=== PATIENT | male | born 1965 | race Caucasian/White ===

== ENCOUNTER 2017-05-17 13:13 | Emergency (ER) | payer MEDICAID ==
[~2017-05-17] VITALS: Ht 170.2 cm; Wt 63.8 kg
[~2017-05-17 13:13] MED LIST: AMIT100T PO; ATOR20TA9 PO; ATOR40TA78 PO; BUPR100T6 PO; BUPR300T49 PO; CYCL5TAB PO; DIAZ10TA PO; FOLI-17 PO; GABA600T2 PO; IBUP-1222 PO; LEVO500T47 PO; MAGN400T26 PO; MELO7.5T31 PO; OXYC-307 PO; SERT100T5 PO; SERT25TA PO; THIA100T6 PO; TRAM-47 PO; TRAM50TA2 PO
[2017-05-17] MEDS ORDERED: THIAMINE 100MG TABLET PO ONE (13:30)
[2017-05-17] MEDS ORDERED: SODIUM CHLORIDE FLUSH 10ML SYR IVF ONE (13:30)
[2017-05-17] MEDS ORDERED: SODIUM CHLORIDE 0.9% 1,000ML IVBOLUS ONE ×2 (13:30→14:30)
[2017-05-17] MEDS ORDERED: LORazepam 2 MG/ML, 1ML IVPush PRN (13:30)
[2017-05-17] MEDS ORDERED: LORazepam 2 MG/ML, 1ML ONE (13:31)
[2017-05-17] MEDS ORDERED: THIAMINE 100MG TABLET ONE (13:32)
[2017-05-17 13:55] LABS: BASOPHILS # (AUTO) 0.05 x10^3/uL (0-0.1); BASOPHILS % (AUTO) 1 % (0-1); EOSINOPHILS # (AUTO) 0.02 x10^3/uL (0-0.4); EOSINOPHILS % (AUTO) 0 % (1-7); LYMPHOCYTES # (AUTO) 1.04 x10^3/uL (1-3.4); LYMPHOCYTES % (AUTO) 11 % (22-44); MD NO; MEAN CORPUSCULAR HGB CONC 34.3 g/dL (33.2-36.2); MEAN CORPUSCULAR VOLUME 93.3 fL (81-97); MEAN PLATELET VOLUME 7.5 fL (7.4-10.4); MONOCYTES # (AUTO) 0.41 x10^3/uL (0.2-0.8); MONOCYTES % (AUTO) 4 % (2-9); NEUTROPHILS # (AUTO) 7.97 x10^3/uL (1.8-6.8); NEUTROPHILS % (AUTO) 84 % (42-75); PLATELET COUNT 421 x10^3/uL (130-400); RED BLOOD COUNT 4.69 x10^6/uL (4.38-5.82); RED CELL DISTRIBUTION WIDTH 15.4 % (9.4-14.8)
[2017-05-17 14:05] LABS: ALBUMIN 3.8 g/dL (3.4-5.0); ANION GAP 12 mmol/L (5-15); CALCIUM 8.6 mg/dL (8.5-10.1); CHLORIDE 109 mmol/L (98-107)
[2017-05-17 14:10] LABS: ALANINE AMINOTRANSFERASE 28 U/L (12-78); ALKALINE PHOSPHATASE 59 U/L (45-117); BILIRUBIN,TOTAL 0.4 mg/dL (0.2-1.0); CREATININE 0.85 mg/dL (0.7-1.3); TOTAL PROTEIN 6.6 g/dL (6.4-8.2)
[2017-05-17] MEDS ORDERED: POTASSIUM CHLORIDE 10% 40 MEQ/30 ML UDC PO ONE (14:30)
[2017-05-17] MEDS ORDERED: SERT100T PO (14:39)
[2017-05-17] MEDS ORDERED: GABA600T2 PO (14:39)
[2017-05-17] MEDS ORDERED: NAPR-685 PO (14:39)
[2017-05-17] MEDS ORDERED: POTASSIUM CHLORIDE 20 MEQ TAB.ER.PRT ONE (15:38)
[2017-05-17 16:15] VITALS: BP 140/88
== END 2017-05-17 16:32 | disposition home or self-care (01) ==
LOC: ED 15:55
DX: F10.10 Alcohol abuse, uncomplicated (principal); J44.9 Chronic obstructive pulmonary disease, unspecified; M54.2 Cervicalgia; G89.29 Other chronic pain; E78.5 Hyperlipidemia, unspecified; F32.9 Major depressive disorder, single episode, unspecified; F41.9 Anxiety disorder, unspecified; Z79.899 Other long term (current) drug therapy
CPT/HCPCS: 36415; 80053; 80307; 83605; 85025; 93005; 96361; 96374; 99285; J2060; J7030

== ENCOUNTER 2017-06-06 08:35 | Emergency (ER) | payer MEDICAID ==
[~2017-06-06] VITALS: Ht 170.2 cm; Wt 65.0 kg
[~2017-06-06 08:35] MED LIST changes: +NAPR-685 PO; +SERT100T PO
[2017-06-06] MEDS ORDERED: CYCL5TAB PO (08:48)
[2017-06-06] MEDS ORDERED: LORazepam 1MG TABLET ONE (08:54)
[2017-06-06] MEDS ORDERED: LORazepam 1MG TABLET PO ONE (09:00)
[2017-06-06] MEDS ORDERED: DIAZEPAM 5 MG TABLET PO ONE (10:00)
[2017-06-06] MEDS ORDERED: KETOROLAC 30 MG/1 ML IM ONE (10:00)
[2017-06-06] MEDS ORDERED: DIAZEPAM 5 MG TABLET ONE (10:02)
[2017-06-06] MEDS ORDERED: KETOROLAC 30 MG/1 ML ONE (10:02)
[2017-06-06 10:46] VITALS: BP 108/61
== END 2017-06-06 11:34 | disposition home or self-care (01) ==
LOC: ED 10:27
DX: F41.1 Generalized anxiety disorder (principal); Z59.0 Homelessness; Z72.9 Problem related to lifestyle, unspecified; J44.9 Chronic obstructive pulmonary disease, unspecified; G89.29 Other chronic pain; M54.5 Low back pain
CPT/HCPCS: 96372; 99283; J1885

== ENCOUNTER 2017-06-07 13:48 | Emergency (ER) | payer MEDICAID ==
[~2017-06-07] VITALS: Ht 172.7 cm; Wt 65.0 kg
[2017-06-07] MEDS ORDERED: LIDOCAINE-MPF 1%, 5ML INFIL ONE (14:30)
[2017-06-07] MEDS ORDERED: LIDOCAINE-MPF 1%, 5ML ONE (14:34)
[2017-06-07 15:32] VITALS: BP 105/67
== END 2017-06-07 16:59 | disposition home or self-care (01) ==
LOC: ED 16:35
DX: S01.81XA Laceration without foreign body of other part of head, initial encounter (principal); J44.9 Chronic obstructive pulmonary disease, unspecified; E78.5 Hyperlipidemia, unspecified; W01.0XXA Fall on same level from slipping, tripping and stumbling without subsequent striking against object, initial encounter; Y93.01 Activity, walking, marching and hiking; Y92.89 Other specified places as the place of occurrence of the external cause; Y99.8 Other external cause status
CPT/HCPCS: 12013; 70450; 93005; 99284

== ENCOUNTER 2017-06-16 11:07 | Emergency (ER) | payer MEDICAID ==
[~2017-06-16] VITALS: Ht 170.2 cm; Wt 64.0 kg
[2017-06-16 11:11] VITALS: BP 108/71
== END 2017-06-16 11:51 | disposition home or self-care (01) ==
LOC: ED 11:40
DX: S01.81XD Laceration without foreign body of other part of head, subsequent encounter (principal); X58.XXXD Exposure to other specified factors, subsequent encounter
CPT/HCPCS: 99282

== ENCOUNTER 2018-04-30 20:51 | Inpatient (IN) | payer MEDICAID ==
[~2018-04-30] VITALS: Ht 172.7 cm; Wt 70.5 kg
[~2018-04-30 20:51] MED LIST changes: +ATOR20TA37 PO; -ATOR20TA9 PO; -GABA600T2 PO; +GABA600T7 PO; +SERT100T32 PO; -SERT100T5 PO; -THIA100T6 PO; +THIA100T67 PO
--- NOTE | 2018-04-30 21:14 | NUR ---
BIB [facility]. C/O chronic lower back pain and left sided dental pain. Patient reports drinking roughyl 5 shots/day with the last one being around 1700 today. Placed on NIBP and pulse ox. Will continue to monitor.
[2018-04-30] MEDS ORDERED: LORazepam 2 MG/ML, 1ML ONE (21:26)
[2018-04-30] MEDS ORDERED: ONDANSETRON 2MG/ML, 2ML ONE (21:26)
[2018-04-30] MEDS: LORazepam 2 MG/ML, 1ML IVPush PRN (21:28)
[2018-04-30] MEDS ORDERED: THIAMINE 100MG TABLET PO ONE (21:30)
[2018-04-30] MEDS ORDERED: SODIUM CHLORIDE FLUSH 10ML SYR IVF ONE (21:30)
[2018-04-30] MEDS ORDERED: ONDANSETRON 2MG/ML, 2ML IVPush ONE (21:30)
[2018-04-30] MEDS ORDERED: THIAMINE 100MG TABLET ONE (21:38)
--- NOTE | 2018-04-30 21:43 | NUR ---
Meds admin. VSS. No other needs.
--- NOTE | 2018-04-30 21:45 | NUR ---
CALLED [facility] FOR [facility]. PT WITH [facility]. [facility] DENIED TRANSFER OF PT.
[2018-04-30] MEDS ORDERED: HYDR10TA4 PO (21:46)
[2018-04-30 21:55] LABS: BASOPHILS # (AUTO) 0.03 x10^3/uL (0-0.1); BASOPHILS % (AUTO) 0 % (0-1); EOSINOPHILS # (AUTO) 0.18 x10^3/uL (0-0.4); EOSINOPHILS % (AUTO) 2 % (1-7); LYMPHOCYTES % (AUTO) 24 % (22-44); MD NO; MEAN CORPUSCULAR HEMOGLOBIN 31.6 pg (27.5-34.5); MEAN CORPUSCULAR HGB CONC 34.4 g/dL (33.2-36.2); MEAN CORPUSCULAR VOLUME 91.8 fL (81-97); MONOCYTES # (AUTO) 0.65 x10^3/uL (0.2-0.8); MONOCYTES % (AUTO) 7 % (2-9); NEUTROPHILS # (AUTO) 6.07 x10^3/uL (1.8-6.8); NEUTROPHILS % (AUTO) 67 % (42-75); PLATELET COUNT 388 x10^3/uL (130-400); RED BLOOD COUNT 4.22 x10^6/uL (4.38-5.82); RED CELL DISTRIBUTION WIDTH 13.2 % (9.4-14.8)
[2018-04-30 22:04] LABS: INTERNATIONAL NORMALIZED RATIO 1.01 (0.93-1.1); PROTHROMBIN TIME 10.6 Seconds (9.6-11.5)
[2018-04-30 22:05] LABS: ALANINE AMINOTRANSFERASE 28 U/L (12-78); ALBUMIN 3.5 g/dL (3.4-5.0); ANION GAP 13 mmol/L (5-15); CALCIUM 7.5 mg/dL (8.5-10.1); CHLORIDE 105 mmol/L (98-107); CREATININE 0.91 mg/dL (0.7-1.3)
[2018-04-30 22:08] LABS: ALKALINE PHOSPHATASE 58 U/L (45-117); BILIRUBIN,TOTAL 0.9 mg/dL (0.2-1.0); TOTAL PROTEIN 5.9 g/dL (6.4-8.2)
[2018-04-30] MEDS ORDERED: POTASSIUM CHLORIDE 20 MEQ TAB.ER.PRT PO ONE (22:30)
[2018-04-30] MEDS ORDERED: POTASSIUM CHLORIDE 20 MEQ TAB.ER.PRT ONE (22:45)
[2018-04-30] MEDS ORDERED: NS + 40MEQ KCL 1,000 ML IV ONE (22:45)
[2018-04-30] MEDS ORDERED: POTASSIUM CHLORIDE 40 MEQ in SODIUM CHLORIDE 0.9% 1,000 ML IV ONE (23:06)
[2018-04-30] MEDS: NS + 40MEQ KCL 1,000 ML IV SCH (23:13)
--- NOTE | 2018-04-30 23:14 | NUR ---
[facility] AT TO EVAL PT. FOR ADMISSION.
[2018-04-30] MEDS ORDERED: hydrOXyzine 10MG TABLET PO PRN (23:30)
[2018-04-30] MEDS ORDERED: TEMPLATE NON-FORMULARY MED. (Gabapentin** 800 MG) PO SCH (23:30)
[2018-04-30] MEDS ORDERED: SODIUM CHLORIDE FLUSH 10ML SYR IVF PRN (23:30)
--- NOTE | 2018-04-30 23:43 | NUR ---
PT. OUT OF ROOM ON [facility].
[2018-05-01] MEDS ORDERED: ACETAMINOPHEN 325 MG TABLET PO PRN
[2018-05-01] MEDS ORDERED: ONDANSETRON ODT 4 MG PO PRN
[2018-05-01] MEDS ORDERED: POLYETHYLENE GLYCOL 17 GM PACKET PO PRN
[2018-05-01] MEDS ORDERED: BISACODYL 10 MG SUPP PR PRN
[2018-05-01] MEDS: NS + 20MEQ KCL 1,000 ML IV SCH ×3 (00:17→19:31)
[2018-05-01] MEDS: THIAMINE 100MG TABLET PO SCH ×3 (00:18→20:37)
[2018-05-01] MEDS ORDERED: GABAPENTIN 400 MG CAPSULE ONE ×3 (00:21→17:10)
--- NOTE | 2018-05-01 00:46 | NUR ---
BREAK RN: PT MEDICATED WITH SCHEDULED NIGHT MEDS PER EMAR. PT ABLE TO AMBULATE STEADILY TO BATHROOM.
[2018-05-01] MEDS ORDERED: LORazepam 2 MG/ML, 1ML ONE ×4 (00:50→14:25)
[2018-05-01] MEDS: LORazepam 2 MG/ML, 1ML IVPush PRN ×5 (00:52→20:37)
--- NOTE | 2018-05-01 00:54 | NUR ---
BREAK RN: PT C/O TREMORS AND RESTLESSNESS. PT MEDICATED WITH ORDERED ATIVAN PER EMAR. PT REPOSITIONED IN BED. CALL LIGHT WITH IN REACH.
--- NOTE | 2018-05-01 00:55 | NUR ---
REPORT TO DEON CERON TO ASSUME PT. CARE.
--- NOTE | 2018-05-01 00:58 | NUR ---
ASSUMED CARE OF PATIENT. REPORT GIVEN FROM DEON MORENO
--- NOTE | 2018-05-01 01:21 | NUR ---
PT RESTING IN ROOM. NO ACUTE DISTRESS NOTED. UROGYNAECOLOGIST ON. NSR NOTED. WILL CONTINUE TO MONITOR.
--- NOTE | 2018-05-01 02:08 | NUR ---
PT RESTING IN ROOM. REGULAR RESP. NO ACUTE DISTRESS NOTED. HYDROELECTRIC STATION OPERATOR CHIEF ON. NSR NOTED. CALL LIGHT IN PLACE. WILL CONTINUE TO MONITOR.
[2018-05-01] MEDS ORDERED: NS + 40MEQ KCL 1,000 ML IV ONE (03:30)
--- NOTE | 2018-05-01 03:36 | NUR ---
PT GIVEN JUICE. VS STABLE. NO ACUTE DISTRESS NOTED. DRY PRIMER POWDER BLENDER ON. NSR NOTED. CALL LIGHT IN PLACE. WILL CONTINUE TO MONITOR.
[2018-05-01 06:05] LABS: ALANINE AMINOTRANSFERASE 27 U/L (12-78); ALBUMIN 3.2 g/dL (3.4-5.0); ANION GAP 5 mmol/L (5-15); CALCIUM 7.3 mg/dL (8.5-10.1); CHLORIDE 114 mmol/L (98-107); CREATININE 0.97 mg/dL (0.7-1.3)
[2018-05-01 06:07] LABS: ALKALINE PHOSPHATASE 52 U/L (45-117); BASOPHILS # (AUTO) 0.03 x10^3/uL (0-0.1); BASOPHILS % (AUTO) 0 % (0-1); BILIRUBIN,TOTAL 0.4 mg/dL (0.2-1.0); EOSINOPHILS # (AUTO) 0.18 x10^3/uL (0-0.4); EOSINOPHILS % (AUTO) 2 % (1-7); LYMPHOCYTES # (AUTO) 1.82 x10^3/uL (1-3.4); LYMPHOCYTES % (AUTO) 21 % (22-44); MD NO; MEAN CORPUSCULAR HEMOGLOBIN 31.8 pg (27.5-34.5); MEAN CORPUSCULAR HGB CONC 34.8 g/dL (33.2-36.2); MEAN CORPUSCULAR VOLUME 91.4 fL (81-97); MEAN PLATELET VOLUME 7.2 fL (7.4-10.4); MONOCYTES % (AUTO) 6 % (2-9); NEUTROPHILS # (AUTO) 6.08 x10^3/uL (1.8-6.8); NEUTROPHILS % (AUTO) 71 % (42-75); PLATELET COUNT 351 x10^3/uL (130-400); RED BLOOD COUNT 4.01 x10^6/uL (4.38-5.82); RED CELL DISTRIBUTION WIDTH 13.3 % (9.4-14.8); TOTAL PROTEIN 5.5 g/dL (6.4-8.2)
--- NOTE | 2018-05-01 06:58 | NUR ---
Recieved bedside report from DEON Gayle. All questions answered. Pt asleep on gurney. Pt has even chest rise and fall. PIV medication finished infusing per EMAR. Pt connected to all monitors and is on 2L of oxygen via nasal cannula. All safety measures in place. Call light within reach. No needs expressed at this time.
--- NOTE | 2018-05-01 07:32 | NUR ---
Called Dr. Holt regarding pt's potassium level drawn at [address] Holt, "discontinue potassium". Non-admin of NS + 40 Meq KCL per EMAR. See EMAR for more details.
[2018-05-01] MEDS ORDERED: THIAMINE 100MG TABLET ONE (09:25)
[2018-05-01] MEDS: NS + 40MEQ KCL 1,000 ML IV SCH ×3 (09:25→22:30)
[2018-05-01] MEDS ORDERED: SENNA/DOCUSATE TABLET ONE (09:26)
[2018-05-01] MEDS: SENNA/DOCUSATE TABLET PO SCH (09:35)
[2018-05-01] MEDS: GABAPENTIN 400 MG CAPSULE PO SCH ×3 (09:36→20:36)
[2018-05-01] MEDS ORDERED: IBUPROFEN 200 MG TABLET ONE (09:41)
[2018-05-01] MEDS: IBUPROFEN 200 MG TABLET PO PRN ×2 (09:44→20:36)
--- NOTE | 2018-05-01 09:50 | NUR ---
Pt tremulous and anxious requesting help to restroom. Assited one assist to restroom. Pt had bowel movement, formed, and brown. Pt provided new linens and gown and underwear. Pt appreciative. Provided pt medication per EMAR and per CIWA score. Pt appreciative. Pt back to room resting on gurney connected to SPO2% and front desk monitor. NADN. All safety measures in place. Pt provided yellow socks. Pt has call light within reach. Breakfast tray provided for pt. Pt appreciative. Pt has dental pain, pain with chewing, provided pt medication for pain per EMAR. Pt waiting to eat breakfast tray. No other needs expressed at this time.
--- NOTE | 2018-05-01 09:58 | NUR ---
Sent yellow slip to pharmacy for med request.
--- NOTE | 2018-05-01 10:06 | NUR ---
Provided bedside report to DEON Leiva. All questions answered. DEON Leiva to assume care of pt.
--- NOTE | 2018-05-01 10:10 | NUR ---
report from DEON Bishop. assumed care of pt. pt resting in room vss. no needs at this time. awaiting bed assignment.
--- NOTE | 2018-05-01 11:19 | NUR ---
pt resting in room wtih lights dimmed. vss. no needs at this time.
[2018-05-01] MEDS: MULTIVITAMINS/MINERALS TABLET PO SCH (11:50)
[2018-05-01] MEDS: FOLIC ACID 1 MG TABLET PO SCH (11:50)
--- NOTE | 2018-05-01 11:56 | NUR ---
CIWA SCORE COMPLETED AND PT MEDICATED PER APR. VSS. NO NEEDS AT THIS TIME. PT RESTING IN BED WITH LIGHTS DIMMED. CALL LIGHT WITHIN REACH.
--- NOTE | 2018-05-01 12:36 | NUR ---
pt's updated per pt request. pt resting in room. vss. no needs at this time.
--- NOTE | 2018-05-01 13:32 | NUR ---
PT RESTING IN ROOM WITH LIGHTS DIMMED. NO NEEDS AT THIS TIME. VSS. CALL LIGHT WITHIN REACH.
--- NOTE | 2018-05-01 14:30 | NUR ---
CIWA ASSESSMENT COMPLETED. VSS. PT RESTING IN ROOM WTIH LIGHTS DIMMED. MEDICATED PER APR. DIET TRAY ORDERED.
--- NOTE | 2018-05-01 15:41 | NUR ---
PT PROVIDED DIET TRAY WITH SOFT FOODS D/T DENTAL PAIN. NO OTHER NEEDS. VSS. CALL LIGHT WITHIN REACH.
--- NOTE | 2018-05-01 16:14 | NUR ---
PT RESTING IN ROOM WITH LIGHTS DIMMED. VSS. NO NEEDS AT THIS TIME. CALL LIGHT WITHIN REACH.
--- NOTE | 2018-05-01 17:18 | NUR ---
pt medicated per mar. vss. no needs at this time. call light within reach.
--- NOTE | 2018-05-01 18:15 | NUR ---
pt resting in room with lights dimmed. vss. no needs at this time. call light within reach.
--- NOTE | 2018-05-01 19:32 | NUR ---
PT RESTING IN ROOM WITH LIGHTS DIMMED. NO NEEDS AT THIS TIME. VSS. CALL LIGHT WITHIN REACH.
[2018-05-01 20:10] VITALS: BP 134/73
[2018-05-01] MEDS: CHLORDIAZEPOXIDE 10 MG CAPSULE PO PRN (22:35)
[2018-05-02] MEDS: SODIUM CHLORIDE 0.9% 1,000 ML IV SCH ×2 (00:45→12:24)
[2018-05-02] MEDS: LORazepam 2 MG/ML, 1ML IVPush PRN ×4 (00:54→19:59)
[2018-05-02 01:35] VITALS: BP 99/66
[2018-05-02 06:04] LABS: BASOPHILS # (AUTO) 0.01 x10^3/uL (0-0.1); BASOPHILS % (AUTO) 0 % (0-1); EOSINOPHILS # (AUTO) 0.26 x10^3/uL (0-0.4); EOSINOPHILS % (AUTO) 3 % (1-7); LYMPHOCYTES # (AUTO) 1.36 x10^3/uL (1-3.4); LYMPHOCYTES % (AUTO) 18 % (22-44); MD NO; MEAN CORPUSCULAR HEMOGLOBIN 31.8 pg (27.5-34.5); MEAN CORPUSCULAR HGB CONC 34.5 g/dL (33.2-36.2); MEAN CORPUSCULAR VOLUME 92.3 fL (81-97); MEAN PLATELET VOLUME 7.4 fL (7.4-10.4); MONOCYTES # (AUTO) 0.47 x10^3/uL (0.2-0.8); MONOCYTES % (AUTO) 6 % (2-9); NEUTROPHILS % (AUTO) 73 % (42-75); PLATELET COUNT 304 x10^3/uL (130-400); RED BLOOD COUNT 3.95 x10^6/uL (4.38-5.82); RED CELL DISTRIBUTION WIDTH 13.7 % (9.4-14.8)
[2018-05-02 06:17] LABS: ANION GAP 4 mmol/L (5-15); CALCIUM 7.7 mg/dL (8.5-10.1); CHLORIDE 112 mmol/L (98-107); CREATININE 0.88 mg/dL (0.7-1.3)
[2018-05-02 06:41] VITALS: BP 106/63
[2018-05-02] MEDS: IBUPROFEN 200 MG TABLET PO PRN ×2 (08:17→19:59)
[2018-05-02] MEDS: GABAPENTIN 400 MG CAPSULE PO SCH ×3 (08:17→19:59)
[2018-05-02] MEDS: FOLIC ACID 1 MG TABLET PO SCH (08:17)
[2018-05-02] MEDS: MULTIVITAMINS/MINERALS TABLET PO SCH (08:17)
[2018-05-02] MEDS: THIAMINE 100MG TABLET PO SCH ×2 (08:18→19:59)
[2018-05-02] MEDS: SENNA/DOCUSATE TABLET PO SCH (08:18)
[2018-05-02] MEDS: CHLORDIAZEPOXIDE 10 MG CAPSULE PO PRN ×2 (12:22→17:36)
[2018-05-02 13:50] VITALS: BP 128/73
[2018-05-02 19:10] VITALS: BP 103/61
[2018-05-03] MEDS: LORazepam 2 MG/ML, 1ML IVPush PRN ×4 (01:17→21:08)
[2018-05-03] MEDS: SODIUM CHLORIDE 0.9% 1,000 ML IV SCH ×3 (01:18→21:08)
[2018-05-03 01:27] VITALS: BP 106/60
[2018-05-03 05:56] LABS: BASOPHILS # (AUTO) 0.04 x10^3/uL (0-0.1); BASOPHILS % (AUTO) 1 % (0-1); EOSINOPHILS # (AUTO) 0.29 x10^3/uL (0-0.4); EOSINOPHILS % (AUTO) 4 % (1-7); LYMPHOCYTES # (AUTO) 1.48 x10^3/uL (1-3.4); LYMPHOCYTES % (AUTO) 22 % (22-44); MD NO; MEAN CORPUSCULAR HEMOGLOBIN 32.1 pg (27.5-34.5); MEAN CORPUSCULAR HGB CONC 35.3 g/dL (33.2-36.2); MEAN CORPUSCULAR VOLUME 91.1 fL (81-97); MEAN PLATELET VOLUME 7.4 fL (7.4-10.4); MONOCYTES # (AUTO) 0.48 x10^3/uL (0.2-0.8); MONOCYTES % (AUTO) 7 % (2-9); NEUTROPHILS # (AUTO) 4.57 x10^3/uL (1.8-6.8); NEUTROPHILS % (AUTO) 67 % (42-75); PLATELET COUNT 285 x10^3/uL (130-400); RED BLOOD COUNT 3.88 x10^6/uL (4.38-5.82)
[2018-05-03 06:10] LABS: ANION GAP 6 mmol/L (5-15); CALCIUM 7.6 mg/dL (8.5-10.1); CHLORIDE 113 mmol/L (98-107); CREATININE 0.75 mg/dL (0.7-1.3)
[2018-05-03 06:32] VITALS: BP 127/84
[2018-05-03] MEDS: THIAMINE 100MG TABLET PO SCH ×2 (10:00→21:07)
[2018-05-03] MEDS: GABAPENTIN 400 MG CAPSULE PO SCH ×3 (10:00→21:07)
[2018-05-03] MEDS: CHLORDIAZEPOXIDE 10 MG CAPSULE PO PRN ×2 (10:00→17:57)
[2018-05-03] MEDS: IBUPROFEN 200 MG TABLET PO PRN ×2 (10:00→21:13)
[2018-05-03] MEDS: FOLIC ACID 1 MG TABLET PO SCH (10:00)
[2018-05-03] MEDS: MULTIVITAMINS/MINERALS TABLET PO SCH (10:00)
[2018-05-03] MEDS: SENNA/DOCUSATE TABLET PO SCH (10:00)
[2018-05-03] MEDS ORDERED: FOLI-17 PO (11:55)
[2018-05-03] MEDS ORDERED: THIA100T67 PO (11:55)
[2018-05-03] MEDS ORDERED: MULT-484 PO (11:55)
[2018-05-03 12:16] VITALS: BP 114/71
[2018-05-03 19:17] VITALS: BP 115/75
[2018-05-04] MEDS: LORazepam 2 MG/ML, 1ML IVPush PRN ×2 (01:44→11:05)
[2018-05-04 01:46] VITALS: BP 115/77
[2018-05-04] MEDS: SODIUM CHLORIDE 0.9% 1,000 ML IV SCH (07:00)
[2018-05-04 07:24] VITALS: BP 131/84
[2018-05-04] MEDS: IBUPROFEN 200 MG TABLET PO PRN (08:48)
[2018-05-04] MEDS: GABAPENTIN 400 MG CAPSULE PO SCH (08:48)
[2018-05-04] MEDS: MULTIVITAMINS/MINERALS TABLET PO SCH (08:48)
[2018-05-04] MEDS: FOLIC ACID 1 MG TABLET PO SCH (08:48)
[2018-05-04] MEDS: THIAMINE 100MG TABLET PO SCH (08:48)
[2018-05-04] MEDS: SENNA/DOCUSATE TABLET PO SCH (08:49)
[2018-05-04] MEDS: CHLORDIAZEPOXIDE 10 MG CAPSULE PO PRN (08:53)
== END 2018-05-04 12:28 | disposition home or self-care (01) | DRG 641 ==
LOC: ED 21:23 → EDIP 23:06 → 3NE 05-01 20:00 → DCLOUNGE 05-04 12:20
PROVIDERS: ADMIT Family Medicine; ATTEND Family Medicine
DX: E87.6 Hypokalemia (principal); D64.9 Anemia, unspecified; E16.2 Hypoglycemia, unspecified; E78.5 Hyperlipidemia, unspecified; E87.2 Acidosis; F10.229 Alcohol dependence with intoxication, unspecified; F19.94 Other psychoactive substance use, unspecified with psychoactive substance-induced mood disorder; F32.9 Major depressive disorder, single episode, unspecified; F41.1 Generalized anxiety disorder; J44.9 Chronic obstructive pulmonary disease, unspecified; K04.7 Periapical abscess without sinus; M50.30 Other cervical disc degeneration, unspecified cervical region; Y90.7 Blood alcohol level of 200-239 mg/100 ml; R73.9 Hyperglycemia, unspecified; Z80.3 Family history of malignant neoplasm of breast; Z85.828 Personal history of other malignant neoplasm of skin; Z87.891 Personal history of nicotine dependence; Z80.1 Family history of malignant neoplasm of trachea, bronchus and lung; Z80.8 Family history of malignant neoplasm of other organs or systems; Z88.0 Allergy status to penicillin
CPT/HCPCS: 36415; 70100; 71045; 80048; 80053; 80307; 82962; 83690; 83735; 85025; 85610; 85730; 93005; 96374; 96375; G0378; J2405; J2060; J3480; J7030

== ENCOUNTER 2018-06-12 08:26 | Emergency (ER) | payer MEDICAID ==
[~2018-06-12] VITALS: Ht 172.7 cm; Wt 57.6 kg
[~2018-06-12 08:26] MED LIST changes: +HYDR10TA4 PO; +MULT-484 PO
[2018-06-12] MEDS ORDERED: HYDR25CA PO (08:44)
[2018-06-12] MEDS ORDERED: LORazepam 1MG TABLET ONE (08:55)
--- NOTE | 2018-06-12 08:58 | NUR ---
pt alying on gurney awake & mostly calm, responds approp to staff, NAD, comfort measures provided, call light within reach.
[2018-06-12] MEDS ORDERED: LORazepam 1MG TABLET PO ONE (09:00)
--- NOTE | 2018-06-12 10:05 | NUR ---
pt continues laying on gurney sleeping, responds approp to staff, NAD, comfort measures provided, call light within reach.
[2018-06-12 10:55] VITALS: BP 140/91
--- NOTE | 2018-06-12 10:55 | NUR ---
pt laying on gurney awake, calm & more comfortable, responds approp to staff, NAD, comfort measures provided, call light within reach.
--- NOTE | 2018-06-12 10:57 | NUR ---
called, will last picker.
--- NOTE | 2018-06-12 11:06 | NUR ---
Patient given discharge instructions and Rx, they have confirmed that they understand the instructions. Patient ambulatory with steady gait.
== END 2018-06-12 11:07 | disposition home or self-care (01) ==
LOC: ED 09:31
DX: F41.9 Anxiety disorder, unspecified (principal); F10.10 Alcohol abuse, uncomplicated; J44.9 Chronic obstructive pulmonary disease, unspecified; E78.5 Hyperlipidemia, unspecified
CPT/HCPCS: 99284

== ENCOUNTER 2019-05-29 15:11 | Emergency (ER) | payer MEDICAID ==
[~2019-05-29] VITALS: Ht 172.7 cm; Wt 63.5 kg
[~2019-05-29 15:11] MED LIST changes: +HYDR-2995 PO; -HYDR10TA4 PO; +HYDR25CA PO
[2019-05-29] MEDS ORDERED: DIAZEPAM 5 MG TABLET PO ONE (15:30)
[2019-05-29] MEDS ORDERED: HYDROcodone/APAP 5/325 TABLET PO ONE (15:30)
[2019-05-29] MEDS ORDERED: DIAZEPAM 5 MG TABLET ONE (15:41)
[2019-05-29] MEDS ORDERED: HYDROcodone/APAP 5/325 TABLET ONE (15:43)
[2019-05-29 16:10] VITALS: BP 117/87
== END 2019-05-29 17:03 | disposition home or self-care (01) ==
LOC: ED 16:12
DX: S16.1XXA Strain of muscle, fascia and tendon at neck level, initial encounter (principal); J44.9 Chronic obstructive pulmonary disease, unspecified; F17.200 Nicotine dependence, unspecified, uncomplicated; E78.5 Hyperlipidemia, unspecified; X58.XXXA Exposure to other specified factors, initial encounter; Y93.89 Activity, other specified; Y92.89 Other specified places as the place of occurrence of the external cause; Y99.8 Other external cause status
CPT/HCPCS: 99283

== ENCOUNTER 2019-08-02 18:15 | Emergency (ER) | payer MEDICAID ==
[~2019-08-02] VITALS: Ht 172.7 cm; Wt 68.8 kg
[2019-08-02] MEDS ORDERED: KETOROLAC 30 MG/1 ML IM ONE (19:30)
[2019-08-02 20:49] VITALS: BP 155/100
[2019-08-02] MEDS ORDERED: KETOROLAC 30 MG/1 ML ONE (21:05)
--- NOTE | 2019-08-02 21:12 | NUR ---
PT RESTING ON GURNEY, MONITORS IN PLACE, SIDERAILS UP X2, CALL LIGHT WITHIN REACH. PT MEDICATED FOR PAIN
[2019-08-02] MEDS ORDERED: DIAZEPAM 5 MG TABLET ONE (21:19)
[2019-08-02] MEDS ORDERED: HYDROmorphone 1 MG/ML, 1ML INJ ONE (21:20)
[2019-08-02] MEDS ORDERED: DIAZEPAM 5 MG TABLET PO ONE (21:30)
[2019-08-02] MEDS ORDERED: HYDROmorphone 1 MG/ML, 1ML INJ IM ONE (21:30)
== END 2019-08-02 22:15 | disposition home or self-care (01) ==
LOC: ED 21:04
DX: M51.34 Other intervertebral disc degeneration, thoracic region (principal); M51.36 Other intervertebral disc degeneration, lumbar region; M41.86 Other forms of scoliosis, lumbar region; M41.84 Other forms of scoliosis, thoracic region; J44.9 Chronic obstructive pulmonary disease, unspecified; R94.31 Abnormal electrocardiogram [ECG] [EKG]
CPT/HCPCS: 71046; 72072; 72110; 93005; 96372; 99284; J1170; J1885

== ENCOUNTER 2019-09-19 08:29 | Emergency (ER) | payer MEDICAID ==
[~2019-09-19] VITALS: Ht 177.8 cm; Wt 80.0 kg
[2019-09-19] MEDS ORDERED: SODIUM CHLORIDE FLUSH 10ML SYR IVF ONE (09:00)
[2019-09-19] MEDS ORDERED: ONDANSETRON 2MG/ML, 2ML IVPush ONE (09:00)
[2019-09-19] MEDS ORDERED: LORazepam 2 MG/ML, 1ML IVPush ONE (09:00)
[2019-09-19] MEDS ORDERED: ONDANSETRON 2MG/ML, 2ML ONE (09:20)
[2019-09-19] MEDS ORDERED: LORazepam 2 MG/ML, 1ML ONE (09:20)
[2019-09-19 09:41] LABS: BASOPHILS # (AUTO) 0.03 x10^3/uL (0-0.1); BASOPHILS % (AUTO) 0 % (0-1); EOSINOPHILS # (AUTO) 0.19 x10^3/uL (0-0.4); EOSINOPHILS % (AUTO) 2 % (1-7); LYMPHOCYTES # (AUTO) 1.08 x10^3/uL (1-3.4); LYMPHOCYTES % (AUTO) 13 % (22-44); MD NO; MEAN CORPUSCULAR HEMOGLOBIN 30.2 pg (27.5-34.5); MEAN CORPUSCULAR HGB CONC 33.2 g/dL (33.2-36.2); MEAN PLATELET VOLUME 7.5 fL (7.4-10.4); MONOCYTES # (AUTO) 0.41 x10^3/uL (0.2-0.8); MONOCYTES % (AUTO) 5 % (2-9); NEUTROPHILS # (AUTO) 6.49 x10^3/uL (1.8-6.8); NEUTROPHILS % (AUTO) 79 % (42-75); PLATELET COUNT 357 x10^3/uL (130-400); RED BLOOD COUNT 4.82 x10^6/uL (4.38-5.82); RED CELL DISTRIBUTION WIDTH 14.4 % (9.4-14.8)
[2019-09-19 09:54] LABS: ALANINE AMINOTRANSFERASE 26 U/L (12-78); ALBUMIN 4.1 g/dL (3.4-5.0); ANION GAP 8 mmol/L (5-15); CALCIUM 9.7 mg/dL (8.5-10.1); CHLORIDE 112 mmol/L (98-107); CREATININE 0.93 mg/dL (0.7-1.3)
[2019-09-19 10:04] LABS: ALKALINE PHOSPHATASE 85 U/L (45-117); BILIRUBIN,TOTAL 0.6 mg/dL (0.2-1.0); FREE T4 (FREE THYROXINE) 1.16 ng/dL (0.76-1.46); TOTAL PROTEIN 7.4 g/dL (6.4-8.2)
--- NOTE | 2019-09-19 10:11 | NUR ---
Pt resting in bed, call light in reach
--- NOTE | 2019-09-19 10:46 | NUR ---
MEDICATED ORDERED, STEADY AMBULATION TO BATHROOM.
--- NOTE | 2019-09-19 11:04 | NUR ---
POC AND DISCHARGE INSTRUCTIONS REVIEWED.
[2019-09-19 11:12] VITALS: BP 137/78
== END 2019-09-19 11:23 | disposition home or self-care (01) ==
LOC: ED 08:34
DX: F41.1 Generalized anxiety disorder (principal); J44.9 Chronic obstructive pulmonary disease, unspecified; R94.31 Abnormal electrocardiogram [ECG] [EKG]; Z76.0 Encounter for issue of repeat prescription
CPT/HCPCS: 36415; 80053; 84439; 84443; 85025; 93005; 96374; 96375; 99284; J2060; J2405

== ENCOUNTER 2019-09-23 11:10 | Emergency (ER) | payer MEDICAID ==
[~2019-09-23] VITALS: Ht 172.7 cm; Wt 69.3 kg
--- NOTE | 2019-09-23 11:38 | NUR ---
first pt contact at this time.
--- NOTE | 2019-09-23 11:52 | NUR ---
pt here today with c/o not being able to sleep due to anxiety related to covid. pt states that he has a bunch of family living in a 1 bedroom domicile and is unable to handle the anxiety related to potentially getting covid.
[2019-09-23 11:58] LABS: BASOPHILS # (AUTO) 0.03 x10^3/uL (0-0.1); BASOPHILS % (AUTO) 0 % (0-1); EOSINOPHILS # (AUTO) 0.11 x10^3/uL (0-0.4); EOSINOPHILS % (AUTO) 1 % (1-7); LYMPHOCYTES # (AUTO) 0.92 x10^3/uL (1-3.4); LYMPHOCYTES % (AUTO) 10 % (22-44); MD NO; MEAN CORPUSCULAR HEMOGLOBIN 30.4 pg (27.5-34.5); MEAN CORPUSCULAR HGB CONC 33.5 g/dL (33.2-36.2); MEAN CORPUSCULAR VOLUME 90.7 fL (81-97); MEAN PLATELET VOLUME 7.1 fL (7.4-10.4); MONOCYTES # (AUTO) 0.42 x10^3/uL (0.2-0.8); MONOCYTES % (AUTO) 5 % (2-9); NEUTROPHILS # (AUTO) 7.37 x10^3/uL (1.8-6.8); NEUTROPHILS % (AUTO) 83 % (42-75); PLATELET COUNT 337 x10^3/uL (130-400); RED BLOOD COUNT 5.03 x10^6/uL (4.38-5.82); RED CELL DISTRIBUTION WIDTH 14.3 % (9.4-14.8)
[2019-09-23 12:08] LABS: ALBUMIN 4.5 g/dL (3.4-5.0); ANION GAP 12 mmol/L (5-15); CALCIUM 9.4 mg/dL (8.5-10.1); CHLORIDE 110 mmol/L (98-107)
[2019-09-23] MEDS ORDERED: LORazepam 1MG TABLET ONE (13:23)
--- NOTE | 2019-09-23 13:28 | NUR ---
pt medicated per order for anxiety
[2019-09-23] MEDS ORDERED: LORazepam 1MG TABLET PO ONE (13:30)
[2019-09-23 13:35] VITALS: BP 142/90
[2019-09-23] MEDS ORDERED: POTASSIUM CHLORIDE 20 MEQ TAB.ER.PRT ONE (13:43)
[2019-09-23] MEDS ORDERED: POTASSIUM CHLORIDE 20 MEQ TAB.ER.PRT PO ONE (14:00)
== END 2019-09-23 14:24 | disposition home or self-care (01) ==
LOC: ED 14:12
DX: F41.1 Generalized anxiety disorder (principal); R06.4 Hyperventilation; E87.6 Hypokalemia; R94.31 Abnormal electrocardiogram [ECG] [EKG]
CPT/HCPCS: 36415; 80048; 82040; 85025; 93005; 99284; Q0177

== ENCOUNTER 2019-10-11 09:24 | Emergency (ER) | payer MEDICAID ==
[~2019-10-11] VITALS: Ht 170.2 cm; Wt 68.2 kg
[2019-10-11] MEDS ORDERED: DIAZEPAM 5 MG TABLET PO ONE (10:30)
[2019-10-11] MEDS ORDERED: KETOROLAC 30 MG/1 ML IM ONE (10:30)
[2019-10-11] MEDS ORDERED: OXYcodone/APAP 5/325MG TABLET PO ONE (10:30)
[2019-10-11] MEDS ORDERED: DIAZEPAM 5 MG TABLET ONE (10:59)
[2019-10-11] MEDS ORDERED: KETOROLAC 30 MG/1 ML ONE (10:59)
[2019-10-11] MEDS ORDERED: OXYcodone/APAP 5/325MG TABLET ONE (11:00)
[2019-10-11 11:09] VITALS: BP 134/89
--- NOTE | 2019-10-11 11:27 | NUR ---
TASK RN: FIRST CONTACT WITH PATIENT. Patient/Caregiver given discharge instructions and they have confirmed that they understand the instructions. Patient ambulatory with steady gait. PT LEFT WITH ALL PERSONAL BELONGINGS
== END 2019-10-11 11:29 | disposition home or self-care (01) ==
LOC: ED 11:24
DX: S39.012A Strain of muscle, fascia and tendon of lower back, initial encounter (principal); G89.11 Acute pain due to trauma; M51.36 Other intervertebral disc degeneration, lumbar region; J44.9 Chronic obstructive pulmonary disease, unspecified; X58.XXXA Exposure to other specified factors, initial encounter; Y93.89 Activity, other specified; Y92.89 Other specified places as the place of occurrence of the external cause; Y99.8 Other external cause status
CPT/HCPCS: 72110; 96372; 99283; J1885

== ENCOUNTER 2019-10-14 15:58 | Emergency (ER) | payer MEDICAID ==
[~2019-10-14] VITALS: Ht 170.2 cm; Wt 64.0 kg
[2019-10-14] MEDS ORDERED: MORPHINE SULFATE 4 MG/ML, 1ML IVPush PRN (16:30)
[2019-10-14] MEDS ORDERED: ONDANSETRON 2MG/ML, 2ML IVPush ONE (16:30)
[2019-10-14] MEDS ORDERED: LIDOCAINE 1%, 10ML INFIL ONE (16:30)
[2019-10-14] MEDS ORDERED: SODIUM CHLORIDE FLUSH 10ML SYR IVF ONE (16:30)
[2019-10-14 16:33] LABS: BASOPHILS # (AUTO) 0.04 x10^3/uL (0-0.1); BASOPHILS % (AUTO) 1 % (0-1); EOSINOPHILS # (AUTO) 0.12 x10^3/uL (0-0.4); EOSINOPHILS % (AUTO) 2 % (1-7); LYMPHOCYTES # (AUTO) 1.21 x10^3/uL (1-3.4); LYMPHOCYTES % (AUTO) 18 % (22-44); MD NO; MEAN CORPUSCULAR HEMOGLOBIN 30.4 pg (27.5-34.5); MEAN CORPUSCULAR VOLUME 89.3 fL (81-97); MEAN PLATELET VOLUME 7.1 fL (7.4-10.4); MONOCYTES # (AUTO) 0.39 x10^3/uL (0.2-0.8); MONOCYTES % (AUTO) 6 % (2-9); NEUTROPHILS # (AUTO) 5.14 x10^3/uL (1.8-6.8); NEUTROPHILS % (AUTO) 75 % (42-75); PLATELET COUNT 381 x10^3/uL (130-400); RED BLOOD COUNT 4.57 x10^6/uL (4.38-5.82); RED CELL DISTRIBUTION WIDTH 13.8 % (9.4-14.8)
--- NOTE | 2019-10-14 16:39 | NUR ---
PT IN [facility]. PT [id number]. PT ON VITALS AND CARDIAC MONITORS.
[2019-10-14 16:45] LABS: ALBUMIN 4.2 g/dL (3.4-5.0); ANION GAP 11 mmol/L (5-15); CALCIUM 9.1 mg/dL (8.5-10.1); CHLORIDE 106 mmol/L (98-107)
[2019-10-14 16:47] LABS: TROPONIN I < 0.015 ng/mL (0.000-0.045)
[2019-10-14] MEDS ORDERED: MORPHINE SULFATE 4 MG/ML, 1ML ONE (17:19)
[2019-10-14] MEDS ORDERED: ONDANSETRON 2MG/ML, 2ML ONE (17:19)
[2019-10-14] MEDS ORDERED: LIDOCAINE-MPF 1%, 2ML ONE (17:19)
[2019-10-14] MEDS ORDERED: LIDOCAINE-MPF 1%, 5ML ONE (17:20)
[2019-10-14] MEDS ORDERED: LORazepam 2 MG/ML, 1ML ONE ×2 (18:37→19:01)
[2019-10-14 18:45] VITALS: BP 133/89
[2019-10-14] MEDS ORDERED: LORazepam 2 MG/ML, 1ML IVPush ONE (19:00)
== END 2019-10-14 19:33 | disposition home or self-care (01) ==
LOC: ED 16:24
DX: S01.81XA Laceration without foreign body of other part of head, initial encounter (principal); S16.1XXA Strain of muscle, fascia and tendon at neck level, initial encounter; S09.90XA Unspecified injury of head, initial encounter; R55 Syncope and collapse; R94.31 Abnormal electrocardiogram [ECG] [EKG]; W18.30XA Fall on same level, unspecified, initial encounter; Y93.89 Activity, other specified; Y92.009 Unspecified place in unspecified non-institutional (private) residence as the place of occurrence of the external cause; Y99.8 Other external cause status
CPT/HCPCS: 12052; 36415; 70450; 71045; 72125; 80048; 82040; 84484; 85025; 93005; 96374; 96375; 99285; J2060; J2270; J2405

== ENCOUNTER 2019-10-20 18:53 | Emergency (ER) | payer MEDICAID ==
[~2019-10-20] VITALS: Ht 170.2 cm; Wt 65.9 kg
[2019-10-20 19:00] VITALS: BP 140/93
== END 2019-10-20 19:39 | disposition home or self-care (01) ==
LOC: ED 18:54
DX: S01.01XD Laceration without foreign body of scalp, subsequent encounter (principal); J44.9 Chronic obstructive pulmonary disease, unspecified; E78.5 Hyperlipidemia, unspecified; F17.200 Nicotine dependence, unspecified, uncomplicated; X58.XXXD Exposure to other specified factors, subsequent encounter
CPT/HCPCS: 99281

== ENCOUNTER 2020-11-10 08:02 | Emergency (ER) | payer MEDICAID ==
[~2020-11-10] VITALS: Ht 172.7 cm; Wt 65.0 kg
[~2020-11-10 08:02] MED LIST changes: -FOLI-17 PO; +FOLI1TAB32 PO; -OXYC-307 PO; +OXYC-501 PO
[2020-11-10] MEDS ORDERED: KETOROLAC 30 MG/1 ML IM ONE (09:00)
[2020-11-10] MEDS ORDERED: DIAZEPAM 5 MG TABLET PO ONE (09:00)
--- NOTE | 2020-11-10 09:28 | NUR ---
PATIENT TOOK AMBULANCE HERE TODAY FOR C/O BACK PAIN, STATES SPONTANEOUS ONSET X 2 DAYS AGO, UNABLE TO SLEEP DUE TO PAIN. ATTEMPTED PATCHES AND IBUPROFEN WITHOUT RELIEF. AWAITING PROVIDER AT THIS TIME.
[2020-11-10] MEDS ORDERED: GABA800T5 PO (09:35)
[2020-11-10] MEDS ORDERED: CLON0.5T PO (09:35)
[2020-11-10] MEDS ORDERED: BUPR-173 PO (09:35)
[2020-11-10] MEDS ORDERED: DIAZEPAM 5 MG TABLET ONE (09:58)
[2020-11-10] MEDS ORDERED: KETOROLAC 30 MG/1 ML ONE (09:58)
[2020-11-10] MEDS ORDERED: GABAPENTIN 300 MG CAPSULE PO ONE (10:30)
--- NOTE | 2020-11-10 10:40 | NUR ---
PATIENT FEELING BETTER, TO BE DC. CALL PLACED TO TO SERVICE STATION EQUIPMENT MECHANIC.
[2020-11-10] MEDS ORDERED: GABAPENTIN 300 MG CAPSULE ONE (10:41)
[2020-11-10 10:50] VITALS: BP 157/99
--- NOTE | 2020-11-10 10:56 | NUR ---
PATIENT STATES PAIN 5/10 AT THIS TIME. REPORTS FEELING BETTER. DC PAPERWORK GIVEN AND PHONE CALL PLACED TO SON TO PICK HIM UP. PATIENT IN WC TO DISCHARGE.
== END 2020-11-10 10:58 | disposition home or self-care (01) ==
LOC: ED 10:48
DX: G89.29 Other chronic pain (principal); M54.5 Low back pain; J44.9 Chronic obstructive pulmonary disease, unspecified; E78.5 Hyperlipidemia, unspecified
CPT/HCPCS: 72110; 96372; 99283; J1885